=== PATIENT | female | born 1940 | race Caucasian/White ===

== ENCOUNTER → 2017-01-30 | Outpatient (CLI) | payer MEDICARE, BC ==
[~2017-01-30] MED LIST: ATENOLOL PO; CALCIUM; OXAPROZIN600 MG PO; PRAVASTATIN SOD40 MG PO; PROTONIX PO; RANITIDINE HCL300 M1 PO; TRAMADOL HCL50 M2 PO; TYLENOL PO; VIACTIV; VIACTIV SOFT C1 EACH PO; VIT B-12 PO; WOMEN S BONE H PO; ZANAFLEX PO; ZOCOR PO
--- NOTE | ~2017-01-30 | CT2 ---
[facility] A Service [facility] RADIOLOGY TEXT RESULTS PATIENT: JUDY HERNANDEZ LOCATION: [facility] : 41 UNIT #: [id number] AGE: [address]: Anish Chaidez MD SEX: F ORDER DR: [id number] [facility]. [place], [place] [address] [id number] O MR#: [id number] #: [id number] NAME: JUDY HERNANDEZ : 1940 SEX: F STUDY DATE/TIME: 01/30/2017 13:30 UNIT: [facility] ROOM: STUDY DESCRIPTION: CT Abd and Pelv W Cont Attending Physician: Anish hCaidez M.D. Referring Physician: Anish Chaidez M.D. Ordering Physician: Anish Chaidez M.D. Primary Care Physician: Anish Chaidez M.D. MEDICAL IMAGING REPORT This report is preliminary unless electronic signature is present EXAM CT abdomen and pelvis with contrast INDICATIONS Left-sided abdominal and flank pain for the past 3 weeks. PROCEDURE Contrast-enhanced CT of the abdomen and pelvis. 100 mL of Isovue-370. This CT exam was performed with one or more of the following radiation dose reduction techniques: Automatic exposure control, adjustment of mA and/or kV according to patient size, and iterative reconstruction. COMPARISON None FINDINGS ABDOMEN WITH CONTRAST: Included lung bases clear. Liver, spleen, kidneys, adrenal glands, pancreas, gallbladder unremarkable. Moderate colonic stool with uncomplicated sigmoid diverticula. Bowel loops nondilated. Appendix is normal. PELVIS WITH CONTRAST: No pelvic mass or fluid. No aggressive appearing bone lesion. IMPRESSION 1. No acute findings. 2. Moderate colonic stool burden. Uncomplicated sigmoid diverticula. Dictated by... Fortunato Ayala M.D. [facility] A Service [facility] RADIOLOGY TEXT RESULTS PATIENT: JUDY HERNANDEZ LOCATION: [facility] : 41 UNIT #: [id number] AGE: [address]: Anish Chaidez MD SEX: F ORDER DR: THIS IS AN ELECTRONICALLY VERIFIED REPORT Fortunato Ayala M.D. at 01/31/2017 10:02 AM NASH/talat TD: 01/30/2017 17:38 JOB #: [id number] MEDICAL IMAGING REPORT Page 1 of 1 COPY
[2017-01-30 13:21] LABS: POC - CREATININE 0.85 mg/dL (0.44-1.03); POC - GFR >60.0 mL/min (>60)
== END | disposition home or self-care (01) ==
LOC: CCAT 12:14
PROVIDERS: Internal Medicine
DX: R10.12 Left upper quadrant pain (principal); K57.30 Diverticulosis of large intestine without perforation or abscess without bleeding
CPT/HCPCS: 74177; 82565; Q9967

== ENCOUNTER → 2017-07-19 | Outpatient (CLI) | payer MEDICARE, BC ==
--- NOTE | ~2017-07-19 | MY29 ---
[facility] A Service of [facility] RADIOLOGY TEXT RESULTS PATIENT: JUDY HERNANDEZ LOCATION: [facility] : 41 UNIT #: [id number] AGE: [address]: Anish Chaidez MD SEX: F ORDER DR: [id number] [facility] [address] [facility]. [place], [place] [address] [id number] O MR#: [id number] Acc #: [id number] NAME: JUDY HERNANDEZ : 1940 SEX: F STUDY DATE/TIME: 07/19/2017 12:29 UNIT: [facility] ROOM: STUDY DESCRIPTION: MY BAKARI SCREENING W/ CAD BILAT Attending Physician: Anish Chaidez M.D. Referring Physician: Anish Chaidez M.D. Ordering Physician: Anish Chaidez M.D. Primary Care Physician: Anish Chaidez M.D. MEDICAL IMAGING REPORT This report is preliminary unless electronic signature is present EXAM Digital screening mammogram, 07/19/2017, [facility]. HISTORY 77-year-old woman no risk elevation. Annual screen. COMPARISON Mammograms date to 03/06/2006 with most recent screening 05/27/2016. FINDINGS Digital imaging of each breast was completed utilizing a two-view examination of each breast in craniocaudal and mediolateral-oblique projections. Review and interpretation of digital mammograms include a second review in conjunction with FDA-approved CAD device. There is a normal parenchymal presentation bilaterally consistent with the patient's age. There are no breast masses imaged and no parenchymal asymmetry is visualized. There are no suspicious microcalcifications and I see no focal architectural disturbance. IMPRESSION Negative screening digital mammogram. One-year followup recommended. Patients over the age of 40 are entered into a reminder system with target due date for the next mammogram. A result letter will also be sent to the patient. BIRADS: 1 Negative Dictated by... Adolph Alfredo M.D. [facility] A Service of [facility] RADIOLOGY TEXT RESULTS PATIENT: JUDY HERNANDEZ LOCATION: [facility] : 41 UNIT #: [id number] AGE: [address]: Anish Chaidez MD SEX: F ORDER DR: THIS IS AN ELECTRONICALLY VERIFIED REPORT Adolph Alfredo M.D. at 07/20/2017 8:06 AM [place] TD: 07/19/2017 21:54 JOB #: [id number] MEDICAL IMAGING REPORT Page 1 of 1 COPY
== END | disposition home or self-care (01) ==
LOC: CWCC 11:45
DX: Z12.31 Encounter for screening mammogram for malignant neoplasm of breast (principal)
CPT/HCPCS: G0202